=== PATIENT | male | born 1925 | race Caucasian/White ===

== ENCOUNTER 2016-10-14 12:11 | Emergency (ER) | payer MEDICARE, OTHER ==
--- NOTE | ~2016-10-14 | CR173 ---
[facility] A Service of [facility] & [facility] RADIOLOGY TEXT RESULTS PATIENT: JOJO JOHNSON V LOCATION: [facility] : [birth year] UNIT #: [id number] AGE: [address]: Jordan Duncan MD SEX: M ORDER DR: [id number] [facility] [address]. [place], [place] [address] [id number] E MR#: [id number] Acc #: [id number] NAME: JOJO JOHNSON V. : 1925 SEX: M STUDY DATE/TIME: 10/14/2016 13:11 UNIT: [facility] ROOM: STUDY DESCRIPTION: CR Knee 3 Views Rt Attending Physician: Jordan Duncan M.D. Ordering Physician: Jordan Duncan M.D. Primary Care Physician: Claudio Valentin M.D. MEDICAL IMAGING REPORT This report is preliminary unless electronic signature is present EXAM Right knee 3 views HISTORY 89-year-old male fell yesterday. Right knee pain, swelling and bruising. FINDINGS Three views of the right knee demonstrates no acute fracture. Mild degenerative change of the knee with spurring the tibial spines. Extensive arterial vascular calcifications noted. No joint effusion. IMPRESSION No acute findings. Dictated by... Yaneth Green M.D. THIS IS AN ELECTRONICALLY VERIFIED REPORT Yaneth Green M.D. at 10/14/2016 9:11 PM DWAYNE/brynn TD: 10/14/2016 16:16 JOB #: [id number] MEDICAL IMAGING REPORT Page 1 of 1 COPY
--- NOTE | ~2016-10-14 | EKG ---
PATIENT: JOJO JOHNSON UNIT #: [id number] Ventricular Rate: 70 BPM Atrial Rate: 70 BPM P-R Interval: 184 ms QRS Duration: 178 ms Q-T Interval: 468 ms QTC Calculation(Bezet): 505 ms P [place]: 88 degrees Calculated R [place]: -75 degrees Calculated T [place]: 99 degrees Diagnosis Line: AV dual-paced rhythm Diagnosis Line: Abnormal ECG Diagnosis Line: When compared with ECG of 21-MAY-2016 00:21, Diagnosis Line: Electronic ventricular pacemaker has replaced Diagnosis Line: Sinus rhythm Diagnosis Line: Confirmed by DIMITRIOS LAU MD ([id number]) on Diagnosis Line: 10/14/2016 3:09:42 PM INTERPRETING MD: ANASTACIO
--- NOTE | ~2016-10-14 | CR206 ---
[facility] A Service of [facility] & [facility] RADIOLOGY TEXT RESULTS PATIENT: JOJO JOHNSON V LOCATION: [facility] : [birth year] UNIT #: [id number] AGE: [address]: Jordan Duncan MD SEX: M ORDER DR: [id number] [facility] [address]. [place], [place] [address] [id number] E MR#: [id number] Acc #: [id number] NAME: JOJO JOHNSON V. : 1925 SEX: M STUDY DATE/TIME: 10/14/2016 13:09 UNIT: [facility] ROOM: STUDY DESCRIPTION: CR Pelvis 1 or 2 Views Attending Physician: Jordan Duncan M.D. Ordering Physician: Jordan Duncan M.D. Primary Care Physician: Claudio Valentin M.D. MEDICAL IMAGING REPORT This report is preliminary unless electronic signature is present EXAM AP pelvis HISTORY Fell yesterday. Complains of pelvic pain, possible stroke. FINDINGS AP pelvis demonstrates no acute fracture. Arterial vascular calcifications noted. 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 IMPRESSION No acute findings. Dictated by... Yaneth Green M.D. THIS IS AN ELECTRONICALLY VERIFIED REPORT Yaneth Green M.D. at 10/14/2016 9:11 PM [place] TD: 10/14/2016 16:15 JOB #: [id number] MEDICAL IMAGING REPORT Page 1 of 1 COPY
--- NOTE | ~2016-10-14 | CT71 ---
[facility] A Service of [facility] & [facility] RADIOLOGY TEXT RESULTS PATIENT: JOJO JOHNSON V LOCATION: [facility] : [birth year] UNIT #: [id number] AGE: [address]: Jordan Duncan MD SEX: M ORDER DR: [id number] [facility] [address] [place], [place] [address] [id number] E MR#: [id number] Acc #: [id number] NAME: JOJO JOHNSON V. : 1925 SEX: M STUDY DATE/TIME: 10/14/2016 14:10 UNIT: [facility] ROOM: STUDY DESCRIPTION: CT Head Wo Contrast Attending Physician: Jordan Duncan M.D. Ordering Physician: Jordan Duncan M.D. Primary Care Physician: Claudio Valentin M.D. MEDICAL IMAGING REPORT This report is preliminary unless electronic signature is present EXAM Head CT without contrast, 10/14/2016 HISTORY Posterior head and neck pain status post fall yesterday with abrasions to head and loss of consciousness. Hypertension and diabetes. TECHNIQUE Multiple axial images were obtained from the skull base to vertex without intravenous contrast administration. This CT exam was performed with one or more of the following radiation dose reduction techniques: automatic exposure control, adjustment of mA and/or kV according to patient size, and iterative reconstruction. FINDINGS The examination is markedly abnormal demonstrating large heterogeneous mixed hyperdense and hypodense subdural hematoma overlying the left convexity measuring 2.4 cm in diameter. There is a mixed density right superior subdural hematoma which is primarily hypodense measuring 1.6 cm in diameter. There is associated mass effect on the left cerebral hemisphere superiorly and to a lesser degree the superior right cerebral hemisphere. Findings were called to the ordering clinician at 02:40 p.m. on 10/14/2016. Diffuse cerebral atrophy is noted. There is no midline shift. Postsurgical changes are again seen within the calvaria. IMPRESSION 1. Markedly abnormal examination demonstrating large bilateral subdural hematomas measuring 2.4 cm on the left and 1.6 cm on the right. Both are located primarily superiorly but also extend into the inferior frontal regions bilaterally. 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 [facility] A Service of [facility] RADIOLOGY TEXT RESULTS PATIENT: JOJO JOHNSON V LOCATION: [facility] : [birth year] UNIT #: [id number] AGE: [address]: Jordan Duncan MD SEX: M ORDER DR: right side suggesting a combination of acute or subacute subdural hemorrhage on chronic. Clinical correlation is recommended. There is some mass effect on the cerebral parenchyma superiorly and bilaterally but no midline shift is seen. 2. Generalized atrophy. STAT * RESULT Dictated by... Emmanuel Galan M.D. THIS IS AN ELECTRONICALLY VERIFIED REPORT Emmanuel Galan M.D. at 10/15/2016 6:24 AM Marylou TD: 10/14/2016 15:05 JOB #: [id number] MEDICAL IMAGING REPORT Page 1 of 1 COPY
--- NOTE | ~2016-10-14 | CR94 ---
[facility] A Service of [facility] & [facility] RADIOLOGY TEXT RESULTS PATIENT: JOJO JOHNSON V LOCATION: [facility] : [birth year] UNIT #: [id number] AGE: [address]: Jordan Duncan MD SEX: M ORDER DR: [id number] [facility] [address]. [place], [place] [address] [id number] E MR#: [id number] Acc #: [id number] NAME: JOJO JOHNSON V. : 1925 SEX: M STUDY DATE/TIME: 10/14/2016 13:13 UNIT: [facility] ROOM: STUDY DESCRIPTION: CR Elbow Min 3 Views Rt Attending Physician: Jordan Duncan M.D. Ordering Physician: Jordan Duncan M.D. Primary Care Physician: Claudio Valentin M.D. MEDICAL IMAGING REPORT This report is preliminary unless electronic signature is present EXAM Right elbow. HISTORY Fell yesterday. Right elbow pain and swelling. FINDINGS Three views of the right elbow demonstrates no fracture/dislocation. No significant arthritic or inflammatory change. Soft tissues appear normal. IMPRESSION No acute findings. Dictated by... Yaneth Green M.D. THIS IS AN ELECTRONICALLY VERIFIED REPORT Yaneth Green M.D. at 10/14/2016 9:11 PM Mirella TD: 10/14/2016 16:27 JOB #: [id number] MEDICAL IMAGING REPORT Page 1 of 1 COPY
--- NOTE | ~2016-10-14 | CR72 ---
[facility] A Service of [facility] & [facility] RADIOLOGY TEXT RESULTS PATIENT: JOJO JOHNSON V LOCATION: [facility] : [birth year] UNIT #: [id number] AGE: [address]: Jordan Duncan MD SEX: M ORDER DR: [id number] [facility] [address]. [place], [place] [address] [id number] E MR#: [id number] Acc #: [id number] NAME: JOJO JOHNSON V. : 1925 SEX: M STUDY DATE/TIME: 10/14/2016 13:06 UNIT: [facility] ROOM: STUDY DESCRIPTION: CR Chest Single View Portable Attending Physician: Jordan Duncan M.D. Ordering Physician: Jordan Duncan M.D. Primary Care Physician: Claudio Valentin M.D. MEDICAL IMAGING REPORT This report is preliminary unless electronic signature is present EXAM Portable chest; 10/14/2016. HISTORY Chest pain, chest swelling and bruising with chest congestion beginning 1 day ago. FINDINGS The heart is top normal in size. Cardiac pacemaker leads are in the right atrium and right ventricle. There is no pneumothorax. Atelectasis at the lung bases. There are no pleural effusions. IMPRESSION No active pulmonary disease. Dictated by... Emmanuel Galan M.D. THIS IS AN ELECTRONICALLY VERIFIED REPORT Emmanuel Galan M.D. at 10/15/2016 6:29 AM MABEL/victorina TD: 10/14/2016 15:53 JOB #: [id number] MEDICAL IMAGING REPORT Page 1 of 1 COPY
--- NOTE | ~2016-10-14 | CT52 ---
[facility] A Service of [facility] RADIOLOGY TEXT RESULTS PATIENT: JOJO JOHNSON V LOCATION: [facility] : [birth year] UNIT #: [id number] AGE: [address]: Jordan Duncan MD SEX: M ORDER DR: [id number] [facility] [address]. [place], [place] [address] [id number] E MR#: [id number] Acc #: [id number] NAME: JOJO JOHNSON V. : 1925 SEX: M STUDY DATE/TIME: 10/14/2016 14:12 UNIT: [facility] ROOM: STUDY DESCRIPTION: CT Cervical Spine Wo Cont Attending Physician: Jordan Duncan M.D. Ordering Physician: Jordan Duncan M.D. Primary Care Physician: Claudio Valentin M.D. MEDICAL IMAGING REPORT This report is preliminary unless electronic signature is present EXAM CT cervical spine without contrast HISTORY Fell yesterday, abrasions, posterior head and neck pain. Positive loss of consciousness. TECHNIQUE Thin section axial images performed through the cervical spine without contrast. Multiplanar reconstructed images reviewed at a workstation. This CT exam was performed with one or more of the following radiation dose reduction techniques: automatic exposure control, adjustment of mA and/or kV according to patient size, and iterative reconstruction. FINDINGS No acute fracture or malalignment. Advanced C5-6 degenerative disc disease with moderate spinal and foraminal stenosis, most prominent within the left lateral recess and left C5-6 foramen. 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 The craniocervical and cervicothoracic junctions appear normal. Arterial vascular calcifications noted. IMPRESSION No acute cervical spine abnormality identified. Moderately advanced C5-6 degenerative disc disease with associated spinal and foraminal stenosis. Dictated by... Yaneth Green M.D. THIS IS AN ELECTRONICALLY VERIFIED REPORT Yaneth Green M.D. at 10/14/2016 9:11 PM [place] [facility] A Service of [facility] RADIOLOGY TEXT RESULTS PATIENT: JOJO JOHNSON V LOCATION: [facility] : [birth year] UNIT #: [id number] AGE: [address]: Jordan Duncan MD SEX: M ORDER DR: TD: 10/14/2016 16:26 JOB #: [id number] MEDICAL IMAGING REPORT Page 1 of 1 COPY
[~2016-10-14 12:11] MED LIST: ALFUZOSIN HCL E10 MG PO; AMARYL2 MG PO; APRESOLINE10 MG PO; ASPIRIN81 MG PO; COUMADIN5 MG PO; DOXYCYCLINE HY100 M1 PO; FLOMAX0.4 M1 PO; GLIMEPIRIDE2 MG PO; HYDRALAZINE HCL25 MG PO; LASIX20 MG PO; LIPITOR20 MG PO; LOPRESSOR PO; PRADAXA75 MG PO; SIMVASTATIN20 MG PO; SIMVASTATIN40 MG PO; UROXATRAL10 MG PO
[2016-10-14 13:58] LABS: URINE SOURCE CLEAN CATCH
[2016-10-14 14:03] LABS: URINE APPEARANCE CLEAR; URINE BILIRUBIN NEG (NEG); URINE BLOOD NEG (NEG); URINE COLOR YELLOW; URINE GLUCOSE NEG (NEG); URINE KETONE NEG (NEG); URINE LEUKOCYTE ESTERASE NEG (NEG); URINE NITRATE NEG (NEG); URINE PH 6.5 (5-8); URINE PROTEIN 2+ (NEG); URINE SPECIFIC GRAVITY 1.022 (1.003-1.035); URINE UROBILINOGEN 0.2 MG/DL (NEG)
[2016-10-14 14:08] LABS: CULTURE INDICATED? NO
[2016-10-14 14:10] LABS: URBCS1 AUWI 0-2 /[HPF] (0-2); UWBCS1 AUWI 0-2 (0-5)
[2016-10-14 14:17] LABS: BASOPHIL% 0.6 % (0-2.5); EOSINOPHIL# 0.2 X10e3 (0-0.7); EOSINOPHIL% 3.1 % (0.0-7.0); HEMATOCRIT 38.1 % (38.0-50.0); HEMOGLOBIN 12.6 gm/dL (13.0-16.0); LYMPHOCYTE# 1.2 X10e3 (1.0-3.5); LYMPHOCYTE% 15.9 % (17.0-45.0); MEAN CELL VOLUME 93.6 FL (83-96); MEAN CORPUSCULAR HGB CONC 33.1 g/dL (30-36); MEAN PLATELET VOLUME 8.1 FL (6.5-11.5); MONOCYTE# 0.6 X10e3 (0-1.0); MONOCYTE% 8.7 % (3.0-12.0); NEUTROPHIL# 5.2 X10e3 (1.5-7.1); NEUTROPHIL% 71.7 % (40-75); PLATELET COUNT 203 X10e3 (140-420); RED BLOOD COUNT 4.07 X10e (3.90-5.60); RED CELL DISTRIBUTION WIDTH 13.2 % (11.0-15.5); WHITE BLOOD COUNT 7.2 X10e3 (4.0-10.5)
[2016-10-14 14:29] LABS: DIFF IND NO; PARTIAL THROMBOPLASTIN TIME 27.3 SECONDS (23.5-31.3); PROTHROMBIN TIME (PATIENT) 11.3 SECONDS (10.0-11.7)
[2016-10-14 14:46] LABS: POC - CKMB 2.3 ng/mL (0.0-7.9); POC - TROPONIN <0.05 ng/mL (<=0.05)
[2016-10-14 14:49] LABS: ALBUMIN SERUM 3.7 g/dL (3.5-5.0); BILIRUBIN, DIRECT 0.1 mg/dL (0.0-0.2); BILIRUBIN,INDIRECT 0.4 mg/dL (0.0-0.9); BILIRUBIN,TOTAL 0.5 mg/dL (0.2-2.0); BUN/CREATININE RATIO 25.29; CALCIUM SERUM 9.1 mg/dL (8.4-10.2); CREATININE SERUM 1.7 mg/dL (0.6-1.4); POTASSIUM 4.8 mmol/L (3.5-5.1)
== END 2016-10-14 15:39 | disposition hospice, home (50) ==
LOC: CED 12:11
PROVIDERS: Emergency Medicine
DX: S06.5X0A Traumatic subdural hemorrhage without loss of consciousness, initial encounter (principal); S41.111A Laceration without foreign body of right upper arm, initial encounter; I48.91 Unspecified atrial fibrillation; I12.9 Hypertensive chronic kidney disease with stage 1 through stage 4 chronic kidney disease, or unspecified chronic kidney disease; E11.22 Type 2 diabetes mellitus with diabetic chronic kidney disease; N18.9 Chronic kidney disease, unspecified; K21.9 Gastro-esophageal reflux disease without esophagitis; W19.XXXA Unspecified fall, initial encounter; Y92.009 Unspecified place in unspecified non-institutional (private) residence as the place of occurrence of the external cause; Z95.0 Presence of cardiac pacemaker; Z88.0 Allergy status to penicillin; Z79.84 Long term (current) use of oral hypoglycemic drugs; Z79.899 Other long term (current) drug therapy
CPT/HCPCS: 36415; 70450; 71010; 72125; 72170; 73080; 73562; 80048; 80076; 81003; 82550; 82553; 84484; 85025; 85610; 85730; 93005; 99291